=== PATIENT | male | born 1975 | race Caucasian/White ===

== ENCOUNTER → 2023-10-14 13:26 | Outpatient (REF) | payer MEDICARE, OTHER, SELFPAY | LOC: HWRAD 13:26 | PROVIDERS: ATTENDING PHYSICIAN Family Medicine; REFERRING PHYSICIAN Internal Medicine Hospice and Palliative Medicine | DX: M25.561 Pain in right knee (principal); G89.29 Other chronic pain; Z96.641 Presence of right artificial hip joint | CPT/HCPCS: 73523; 73564 ==

== ENCOUNTER → 2023-11-20 13:18 | Outpatient (REF) | payer MEDICARE, OTHER, SELFPAY | LOC: HWRAD 13:18 | PROVIDERS: ATTENDING PHYSICIAN Internal Medicine; FAMILY PHYSICIAN Family Medicine | DX: M81.0 Age-related osteoporosis without current pathological fracture (principal) | CPT/HCPCS: 77080; 77081 ==

== ENCOUNTER → 2024-01-12 10:44 | Outpatient (REF) | payer MEDICARE, OTHER, SELFPAY | LOC: RAD 10:44 | PROVIDERS: ATTENDING PHYSICIAN Dentist; FAMILY PHYSICIAN Family Medicine | DX: K01.1 Impacted teeth (principal) | CPT/HCPCS: 70486 ==

== ENCOUNTER → 2024-08-30 10:53 | Outpatient (REF) | payer MEDICARE, OTHER, SELFPAY | LOC: HWRAD 10:53 | PROVIDERS: ATTENDING PHYSICIAN Family Medicine | DX: R05.1 Acute cough (principal) | CPT/HCPCS: 71046 ==

== ENCOUNTER 2024-10-05 13:02 | Inpatient (IN) | payer MEDICARE, OTHER, SELFPAY ==
[2024-10-05] VITALS (40 sets, daily range): BP systolic 65–178; BP diastolic 41–128; BMI 22.8; BMI 22.7
--- NOTE | 2024-10-05 09:14 | ED.GENMED ---
History of Present Illness
General
Chief Complaint: Fever
Source: patient and family (Mother at bedside)
Exam Limitations: clinical condition
Time Seen by Provider: 10/05/24 09:14
Nursing documentation reviewed up to this point in time: agreed with
History of Present Illness
History of Present Illness:
48-year-old male with history of Down syndrome, Lewy body dementia/Parkinson's, celiac disease, depression presents with family for fever. Mom states fever started last evening with decrease in appetite and tremors. Has had a cough. Is immunized for
Flu and Covid. Dad at home with Bronchitis. Pt had bronchitis last month, finished 10 d of Keflex starting 09/11. Called PCP Dr. Burris and had a telehealth visit last p.m. and put on Azythromycin liquid, had had first 500 mg dose.
Patient is on palliative care followed by Dr. Santos
Past History
Past History
ED Past Medical History: Other (Parkinson's, Lewy body dementia, Down syndrome) and Other (Chronic constipation, mom has to give enema every 3 days. Just started on daily MOM last week)
ED Past Surgical History: Orthopedic (C-spine surgery)
Social History
Tobacco: Non-smoker
Alcohol: None
Drug: None
Personal: Single
Living: with family
Review of Systems
Review of Systems
Allergies reviewed?: Yes
All Other Systems: ROS reviewed and negative except as documented in HPI and ROS
Constitutional: Reports fever and chills
Respiratory: Reports cough and other (mom at bedside states pt pulse ox goes into 80's at night typically and then to 90's during the day)
ABD/GI: Reports anorexia; Denies vomiting or diarrhea
: Reports incontinence (had a heavy wet diaper this a.m.); Denies difficulty voiding
Musculoskeletal: Denies edema
Skin: Reports no symptoms
Phy Exam
Physical Exam
Physical Exam:
GENERAL: No acute distress. A&Ox3.
CONSTITUTIONAL: 102.0 R
EYES: clear, conjunctivae normal
ENMT: dry mucus membranes
RESPIRATORY: Regular respirations, nonlabored, lungs clear.
CARDIOVASCULAR: Regular rate and rhythm, no murmurs, no rubs.
GI: Soft, nontender, normal BS
MUSCULOSKELETAL: Muscle wasting. Well perfused. No edema
SKIN: Warm, dry, pale
PSYCH: Non verbal at this time. Well kept
NEUROLOGIC: Awake, closes eyes at times, rigors, non verbal.
Course
Orders/Labs/Results
Orders:
Orders
10/05/24 09:23
COVID-19 Antigen Urgent
Source: Nasal Swab
INF RAPID [Influenza A+B Rapid Molecular] Urgent
KATHRYN Source: Nasal Swab
Specimen Description:
10/05/24 09:58
0.9% Sodium Chloride 1000 ml [Nss] 1,000 ml IV BOLUS
Acetaminophen [Tylenol/Feverall] 650 mg RECTAL NOW STA
10/05/24 Lunch
NPO
Allow oral meds: Yes
Allow clear liquids: Sips of Clears
NPO with Ice Chips: Yes
10/05/24 10:24
Complete Blood Count/With Diff Urgent
Comprehensive Metabolic Panel Urgent
Magnesium Urgent
Comment: ADD ON
Phosphorus Urgent
Comment: ADD ON
10/05/24 10:31
CR Chest Portable - 1 View Urgent
Comment:
Reason For Exam: fever, flu, Down's syndrome, seizures
Reason Study Needs to be Portable: Patient Unstable
10/05/24 10:39
Oseltamivir [Tamiflu] 75 mg PO NOW STA
10/05/24 11:35
Piperacillin/Tazo 4.5 Gram [Zosyn] 4.5 gram in 100 ml IV NOW
10/05/24 11:43
0.9% Sodium Chloride 1000 ml [Nss] 1,000 ml IV BOLUS
10/05/24 11:58
Blood Culture Q30M
KATHRYN Source: Blood/Venous
Specimen Description:
Blood Culture Q30M
KATHRYN Source: Blood/Venous
Specimen Description:
10/05/24 12:00
0.9% Sodium Chloride 1000 ml [Nss] 1,000 ml IV 100 mls/hr
10/05/24 12:18
Admit/Transfer Patient As Directed
Co-Sign Provider:
Level of Care: Inpatient admission
Assign to:: Medical/Surgical
Physician / Group: Hospitalist
Diagnosis: Influenza
Reason for Hospitalization: Influenza
Expected length of stay greater than two midnights?: Yes
ELOS- Estimated Length of Stay in days: 5
I certify the patient meets the requirements for IP care: Yes
PRN Pain Medication Management As Directed
May give lesser potent ordered pain med per pt: Yes
preference::
Protocol:: Medication orders for pain may be administered in a
manner that supports deferring to patient preference
when the pt is:
- Requesting an ordered lesser potent pain medication.
Least to most potent pain medications are defined
as: acetaminophen < NSAID < tramadol < opioids
(morphine, oxycodone, hydromorphone).
- Requesting a lesser dose of the same medication IF
ORDERED.
- Requesting a less intrusive route of administration
if both routes are prescribed by the provider (PO <
IV).
10/05/24 12:20
Code Status As Directed
Resuscitation Status: Do not resuscitate
Reached after discussion with pt or family/Healthcare POA: Yes
10/05/24 12:21
DNR Bracelet Application ONCE
10/05/24 12:56
ABG [Arterial Blood Gas] Stat
%Oxygen/Room Air: 100%
10/05/24 13:16
Albuterol Nebs [Ventolin Nebules] 2.5 mg INH R Q4HPRN PRN
Bisacodyl [Dulcolax] 10 mg RECTAL [id number] PRN
Docusate W/Senna [Senokot-S] 1 tablet PO BIDPRN PRN
Ondansetron Injectable [Zofran] 4 mg IV Q8HPRN PRN
Polyethylene Glycol Powder [Miralax] 17 grams PO DAILYPRN PRN
10/05/24 13:16
Respiratory Culture/Gram Stain Urgent
KATHRYN Source: Sputum
Specimen Description:
Date Specimen was Collected: 10/06/24
Time Specimen was Collected: 10:01
Activity As Directed
Activity Level: Out of Bed-Early Mobility
Precautions As Directed
Type of Precautions: Droplet
Precautions As Directed
Type of Precautions: Seizure
Suction Patient As Directed
Route of Suctioning: Oropharyngeal
Vital Signs As Directed
Frequency: Per unit guidelines
O2 Therapy [RESP] Routine
Titrate/Wean O2 to maintain O2 sat greater than (%): 90
Speech Therapy Eval & Treat Routine
DX Deep Vein Thrombosis Video Routine
10/05/24 13:49
Blood Culture Q30M
KATHRYN Source: Blood/Venous
Specimen Description:
Blood Culture Q30M
KATHRYN Source: Blood/Venous
Specimen Description:
10/05/24 14:00
CefTRIAXone [Rocephin] 1,000 mg IV Q24H
Doxycycline Hyclate [Vibramycin] 100 mg 0.9% Sodium Chloride 250 ml [Nss] 250 ml IV Q12H
10/05/24 16:00
Acetaminophen 1000MG/100Ml [Ofirmev] 1,000 mg in 100 ml IV Q8H
Acetaminophen IV Indication:: No IN & No Enteral Access
Alprazolam [Xanax] 0.125 mg PO TID
Heparin 5,000 units SC Q8
Ipratropium/Albuterol Sulfate [Duoneb] 3 ml INH R QID
10/05/24 20:00
Brimonidine [Alphagan 0.2% Eye Drops] See Dose Instructions RIGHT EYE BID
Lamotrigine [Lamictal] 50 mg PO BID
Oseltamivir [Tamiflu] 30 mg PO BID
10/05/24 22:00
Latanoprost [Xalatan Ophthalmic Solution] See Dose Instructions BOTH EYES HS
netarsudil [Rhopressa] 1 drop RIGHT EYE HS
travoprost [Travatan Z] 1 drop BOTH EYES HS
10/06/24 03:34
Complete Blood Count/With Diff IN AM
Comprehensive Metabolic Panel IN AM
Abnormal Lab Results
10/05/24 10/05/24
10:24 12:56
MCV 98.1 H fL
(80.0-94.0)
MCH 33.3 H pg
(27.0-31.0)
Abs Immat Gran (auto) 0.1 H 10^3/uL
(0-0.05)
Absolute Lymphs (auto) 0.4 L 10^3/uL
(1.2-3.4)
Immature Gran % 0.9 H %
(0-0.5)
Neutrophils % 81.7 H %
(42.2-75.2)
Lymphocytes % 5.5 L %
(20.5-51.1)
pO2 110 H mmHg
(83-108)
ABG O2 Sat (Measured) 99.9 H %
(94-98)
Sodium 146 H mmol/L
(135-145)
BUN 46 H mg/dl
(9-20)
Creatinine 2.0 H mg/dL
(0.7-1.3)
Glucose 112 H mg/dl
(70-99)
Phosphorus 5.0 H mg/dl
(2.5-4.5)
Magnesium 3.2 H mg/dl
(1.6-2.3)
AST 69 H U/L
(17-59)
ALT 85 H U/L
(0-50)
10/05/24 10:24
10/05/24 10:24
Vital Signs
Initial and Last Documented VS:
Initial Vital Signs
Temp Resp
99.4 F 20
10/05/24 09:03 10/05/24 09:03
Last Documented Vital Signs
Temp Pulse Resp BP Pulse Ox
100.6 F H 96 12 101/65 59
10/07/24 07:50 10/07/24 06:00 10/07/24 06:00 10/07/24 06:00 10/07/24 08:00
MDM/Problems Addressed
Differential Diagnosis Includes:
COVID, influenza, bronchitis, pneumonia
MDM/Problems Addressed:
48-year-old male with history of Down syndrome, Lewy body dementia/Parkinson's, celiac disease, depression presents with family for fever. Mom states fever started last evening with decrease in appetite and tremors. Has had a cough. Is immunized for
Flu and Covid. Dad at home with Bronchitis. Pt had bronchitis last month, finished 10 d of Keflex starting 09/11. Called PCP Dr. Burris and had a telehealth visit last p.m. and put on Azythromycin liquid, had had first 500 mg dose.
Patient is on palliative care followed by Dr. Santos
Temp 102.0 Rectal by this examiner
11:15 a.m.
CBC noted, unremarkable
CMP: BUN/creat 46/2.0, IV fluids infusing for dehydration
COVID-negative
Flu A+
11:30 a.m.
This 48-year-old male appears moderately ill with influenza A, fever
CXR: L basilar pneumonia
Pulse ox 80% on 5L NC. Respiratory called for humidified O2 by mask, pt breathes through open mouth
Plan: Admit: Pneumonia, Flu, dehydration, IV antibiotic ordered
Hospitalist notified of admission
Chronic conditions affecting care: Neurological disorder (Parkinson's) and Other (Down's Syndrome)
*Critical Care Note
Total Time (30-74mins, 75-104mins- exclusive of procedures): Not Applicable
ED Attending Note
-
Portions of this chart may have been created with voice recognition software.� Occasional wrong word or��sound alike� substitutions may have occurred due to the inherent limitations of voice recognition software.
Discharge Plan
Departure
Patient Disposition: Admit
Date of Disposition: 10/05/24
Time of Disposition: 11:13
Presentation/result/management discussed w/ accepting MD/DO: Hospitalist
Condition: Serious
Covid-19: Negative COVID-19
Discharge Problem:
Influenza A, Pneumonia, Acute hypoxic respiratory failure
Interventions
Interventions:
*Risk Screen - Suicide Last Done: 10/05/24 10:39
*General Assessment Last Done: 10/05/24 09:27
*Neglect/Abuse Screening Last Done: 10/05/24 09:27
ED- Fall Risk Assessment Last Done: 10/05/24 09:27
*ED COVID-19 Vaccine History Last Done: 10/05/24 09:27
ED- Neurological Assessment Last Done: 10/05/24 09:32
ED-Skin Assessment Last Done: 10/05/24 09:27
[2024-10-05 09:43] LABS: COVID-19 Antigen Negative (Negative)
[2024-10-05] MEDS: NSS 1000 IV ×4 (10:18→21:46)
[2024-10-05] MEDS: TYLENOL/FEVERALL 650 MG RECTAL (10:18)
[2024-10-05 10:33] LABS: % Basophils 1.1 % (0-2); % Eosinophils 4.5 % (0-6); % Immature Granulocytes 0.9 % (0-0.5); % Lymphocytes 5.5 % (20.5-51.1); % Monocytes 6.3 % (1.7-9.3); % Neutrophils 81.7 % (42.2-75.2); Absolute Basophils 0.1 10^3/uL (0-0.2); Absolute Eosinophils 0.3 10^3/uL (0-0.7); Absolute Immature Granulocytes 0.1 10^3/uL (0-0.05); Absolute Lymphocytes 0.4 10^3/uL (1.2-3.4); Absolute Monocytes 0.4 10^3/uL (0.1-0.6); Absolute Neutrophils 5.3 10^3/uL (1.4-6.5); Hematocrit 47.1 % (39.0-52.0); Mean Corpuscular Hgb 33.3 pg (27.0-31.0); Mean Corpuscular Volume 98.1 fL (80.0-94.0); Mean Platelet Volume 9.8 fL (7.4-10.4); Nucleated Red Blood Cells % 0 % (-); Platelet Count 149 10^3/uL (130-400); Red Cell Dist. Width 13.6 % (11.5-14.5); White Blood Cell Count 6.5 10^3/uL (4.8-10.8)
[2024-10-05 10:46] LABS: ALT (SGPT) 85 U/L (0-50); AST (SGOT) 69 U/L (17-59); Albumin 4.1 g/dl (3.5-5.0); Alkaline Phosphatase 87 U/L (38-126); Blood Urea Nitrogen 46 mg/dl (9-20); Calcium 8.7 mg/dl (8.4-10.2); Carbon Dioxide 27 mmol/L (22-30); Chloride 103 mmol/L (98-107); Glucose 112 mg/dl (70-99); Potassium 4.5 mmol/L (3.5-5.1); Sodium 146 mmol/L (135-145); Total Bilirubin 0.6 mg/dl (0.2-1.3); Total Protein 7.8 g/dl (6.3-8.2); eGFR 40.66
[2024-10-05] MEDS: TAMIFLU 75 MG PO (11:32)
[2024-10-05] MEDS: ZOSYN 100 IV (11:59)
--- NOTE | 2024-10-05 12:26 | HPS.HSE ---
Family Physician
-
Family Physician: Oscar Burris
Chief Complaint
-
fever
History of Present Illness
48yo M with Down syndrome, progressive dysphasia on palliative care developed fevers and poor oral intake day prior to admission. FOund Influenza A and LLL pneumonia on XR. ALso WOODROW most likely 2/2 dehydration. Patient usually fed by his mother with
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 Due to PATRICIA - udually desat during sleep, but intollerant of NC or CPAP at home. Lethargic and hypoxic in ED. After detailed conversation with mother bedside - patient DNR/DNI
Medical History
Past Medical History
Past Medical History: Reports Other
Additional Past Medical History:
see hpi
Past Surgical History: Reports None
Social History
Unable to obtain full social history at this time due to: Acuity
Tobacco: Non-smoker
Alcohol: None
Drug: None
Family History
Family History: Not pertinent
Allergies / Home Medications
Allergies reflects when Allergies were last updated in [facility].
Home Medications with original date entered in [facility]
Allergy/Medication List:
Allergies
Allergy/AdvReac Type Severity Reaction Status Date / Time
No Known Allergies Allergy Verified 10/05/24 08:57
Home Medications
alprazolam 0.25 mg tablet (Xanax) 0.125 mg PO TID Mental Health/Anxiety 04/12/22
brimonidine 0.2 %-timolol 0.5 % eye drops (Combigan) 1 drp RIGHT EYE BID Eye condition 04/12/22
melatonin 3 mg tablet 6 mg PO HS Sleep 04/12/22
netarsudil 0.02 % eye drops (Rhopressa) 1 drp RIGHT EYE HS Eye condition 04/12/22
travoprost 0.004 % eye drops (Travatan Z) 1 drp BOTH EYES HS Eye condition 04/12/22
calcium citrate 500 mg PO DAILY Supplement 04/13/22
cholecalciferol (vitamin D3) 25 mcg (1,000 unit) tablet (Vitamin D3) 25 mcg PO DAILY Supplement 04/13/22
cyanocobalamin (vitamin B-12) 1,000 mcg tablet (Vitamin B-12) 1,000 mcg PO DAILY Supplement 04/13/22
sennosides 8.6 mg-docusate sodium 50 mg tablet (Senokot-S) 2 tab-cap PO HS Gastrointestinal issue 04/13/22
acetaminophen 650 mg/20.3 mL oral solution 0 mg PO Q4HPRN PRN fever 10/05/24
azithromycin 200 mg/5 mL oral suspension 0 mg PO .COMPLEX 10/05/24
denosumab 60 mg/mL subcutaneous syringe (Prolia) 60 mg SC [id number] 10/05/24
lamotrigine 25 mg tablet (Lamictal) 50 mg PO BID 10/05/24
latanoprost 0.005 % eye drops 1 drp BOTH EYES HS 10/05/24
sodium chloride 0.9 % for nebulization 0 ml inhalation QIDPRN PRN sob 10/05/24
Review of Systems
-
Unable to obtain full review of systems at this time due to: Acuity
Physical Exam
Vital Signs
Vital Signs
Temp Resp BP Pulse Ox
100.3 F 24 79/50 94
10/05/24 09:14 10/05/24 09:26 10/05/24 11:00 10/05/24 11:30
Physical Exam
General: Fever
Respiratory: Rhonchi; No Wheezes or Rales
Cardiac: S1/S2 and Regular Rhythm; No Murmur
GI: Soft, Non Tender and Non Distended
Genito-urinary: Clear Urine
Musculoskeletal: No Clubbing, No Cyanosis and No Edema
Neuro: Sedated
Psych: Calm
Laboratory Results
-
10/05/24 10:24
10/05/24 10:24
Laboratory Results
Total Bilirubin 0.6 mg/dl (0.2-1.3) 10/05/24 10:24
AST 69 U/L (17-59) H 10/05/24 10:24
ALT 85 U/L (0-50) H 10/05/24 10:24
Alkaline Phosphatase 87 U/L (38-126) 10/05/24 10:24
Data Reviewed
-
Diagnostic Radiology: Report Reviewed by me
Lab Data: Labs Reviewed by me
Impression/Plan
-
A/P
#Acute hypoxic respiratory failure 2/2 pneumonia, unspecified organism
#Influenza A
#PATRICIA not on CPAP or nocturnal O2
#Acute septic encephalopathy 2/2 above
start non-invasive O2, titrate to >90%
Tamiflue
respiratory hygiene - frequent suctioning
Rocephin/DOxy
sputum Cx
tylenol
droplet precautions
Bcx
ABG
#WOODROW
#Dysphagia
GAUGER DELIVERY
IVF
follow Cr
#Down syndrome
progressive
family will continue with palliative approach
#Seizure d/o
Seizure precautions
lamictal level and cont AED
#Glaucoma
cont home meds
#Osteoporosis
cont Prolia upon d/c
DVT ppx hep
DNR/DNI
I have spent at least 78min reviewing chart, test results, communication with consultants and direct patient care
[2024-10-05 13:08] LABS: B.E. 1.3 mmol/L; HCO3 27.2 mmol/L (21-28); O2 Saturation % 99.9 % (94-98); PCO2 47 mmHg (35-48); PO2 110 mmHg (83-108); pH 7.37 (7.35-7.45)
--- NOTE | 2024-10-05 13:37 | W.PN.UPDATE ---
Update Note
Progress Note Update
Hypotension in spite of 2L bolus on admission, possible septic shock - Levophed, ICU, expand Abx to Vanco/Cefepime
--- NOTE | 2024-10-05 13:51 | PHA.VAN.IN ---
Assessment
- Assessment
Renal Function: Appears elevated from baseline (SCR 2 vs ~0.7)
Concomitant Antimicrobials: cefepime, oseltamivir
Plan
- Plan
Initial / Loading Dose: 1500mg - administration pending
Maintenance Regimen: dosing by level
Monitoring: random - 10/06 0600
MRSA Screen: Ordered per protocol
Pharmacokinetics Vancomycin I
- -
Patient Age: 48
Patient Sex: Male
Vancomycin Day #: 1
Indication: Other
Requesting Provider: Dr. Vieira
Pertinent Antimicrobial Allergies:
NKDA
Height / Weight:
Height 5 ft 3 in
Actual Weight 58.3 kg
Pertinent Past Medical History: Down syndrome
- Vital Signs / Lab Results
Temp Resp BP Pulse Ox
100.3 F 24 70/51 96
10/05/24 09:14 10/05/24 09:26 10/05/24 12:00 10/05/24 12:30
Lab Results - Hematology
10/05/24
10:24
WBC 6.5
Lab Results - Chemistry
10/05/24
10:24
BUN 46 H
Creatinine 2.0 H
Albumin 4.1
Microbiology Results
10/05/24 09:23 Influenza Types A & B (ALEXEY) - Final
Nasal Swab Influenza A Positive, NAAT
[2024-10-05] MEDS: LEVOPHED 250 IV ×2 (13:59→19:50)
[2024-10-05] MEDS: VANCOCIN 530 MG IV (14:14)
--- NOTE | 2024-10-05 14:25 | CON.INTV ---
Consultation
Consultation Request
Date/Time Consultation Requested: 10/05/2024/13:36
Date/Time Consultation Performed: 10/05/2024/14:05
Requesting Provider: Juan Carlos Vieira
Performing Provider: Ki Amaral
Reason for Consultation: Septic Shock
Medical History
-
Chief Complaint: Fever, cough, and lethargy
History of Present Illness:
Patient is a 48-year-old male, has Down syndrome with complications(dysphagia, myopathy, PATRICIA),Lewy body dementia/Parkinsons?, Depression, brought in the emergency by his mother with complaint of fever that was high-grade, with no day or night
pattern, not relieved by acetaminophen at home and was associated with cough. As per mother, he was not feeling well for last 2 days, he was being more lethargic, was having cough, was febrile so they reached out to primary care physician
Fatuma and had a tele health visit yesterday, he was put on liquid azithromycin which she gave to him through syringe but the patient became more lethargic and started coughing so they decided to come to the ER.
On arrival to the ER patient was lethargic and hypoxic. He was resuscitated with 2 L of fluid, but hypotension persisted and so he was started on Levophed. He was also given a dose of Zosyn, ceftriaxone and doxycycline in the ER. Evaluation in ER
showed, a new opacity in left lower lobe of lung, and patient was found to be influenza A positive. He was severely hypoxic and is currently on 15 L of oxygen with nonrebreather mask.
Patient has history of dysphagia that is progressive, and patient only tolerates pur�ed diet or liquids. He also has history of PATRICIA but is intolerant of CPAP/nasal cannula but often desaturates at night.
Of note, patient is on palliative care and is DNR and DNI as confirmed with the family
Past Medical History
Past Medical History: Seizures (Last seizure 3 years ago, occasionally has twitches of muscles) and Other (Down syndrome with complications of (dysphagia, myopathy), PATRICIA, depression, Lewy body dementia, Parkinson's, osteoporosis)
Past Surgical History: Other (Spine surgery)
Social History
Tobacco: Non-smoker
Alcohol: None
Drug: None
Personal: Single
Living: With Family
Family History
Family History: Reviewed & Not Pertinent
Allergies / Home Medications
Allergies
Allergy/AdvReac Type Severity Reaction Status Date / Time
No Known Allergies Allergy Verified 10/05/24 08:57
Home Medications
�Medication �Instructions �Recorded �Confirmed �Last Taken �Type
alprazolam 0.25 mg tablet (Xanax) 0.125 mg PO TID Mental 04/12/22 10/05/24 10/05/24 History
Health/Anxiety
brimonidine 0.2 %-timolol 0.5 % 1 drp RIGHT EYE BID Eye condition 04/12/22 10/05/24 Unknown History
eye drops (Combigan)
melatonin 3 mg tablet 6 mg PO HS Sleep 04/12/22 10/05/24 Unknown History
netarsudil 0.02 % eye drops 1 drp RIGHT EYE HS Eye condition 04/12/22 10/05/24 Unknown History
(Rhopressa)
travoprost 0.004 % eye drops 1 drp BOTH EYES HS Eye condition 04/12/22 10/05/24 Unknown History
(Travatan Z)
calcium citrate 500 mg PO DAILY Supplement 04/13/22 10/05/24 Unknown History
cholecalciferol (vitamin D3) 25 25 mcg PO DAILY Supplement 04/13/22 10/05/24 Unknown History
mcg (1,000 unit) tablet (Vitamin
D3)
cyanocobalamin (vitamin B-12) 1,000 mcg PO DAILY Supplement 04/13/22 10/05/24 Unknown History
1,000 mcg tablet (Vitamin B-12)
sennosides 8.6 mg-docusate sodium 2 tab-cap PO HS Gastrointestinal 04/13/22 10/05/24 Unknown History
50 mg tablet (Senokot-S) issue
acetaminophen 650 mg/20.3 mL oral 0 mg PO Q4HPRN PRN fever 10/05/24 10/05/24 10/05/24 History
solution
azithromycin 200 mg/5 mL oral 0 mg PO .COMPLEX 10/05/24 10/05/24 10/04/24 History
suspension 12.5ml
denosumab 60 mg/mL subcutaneous 60 mg SC [id number] 10/05/24 10/05/24 4 Months Ago History
syringe (Prolia) ~06/05/24
lamotrigine 25 mg tablet (Lamictal) 50 mg PO BID 10/05/24 10/05/24 10/05/24 History
latanoprost 0.005 % eye drops 1 drp BOTH EYES HS 10/05/24 10/05/24 Unknown History
sodium chloride 0.9 % for 0 ml inhalation QIDPRN PRN sob 10/05/24 10/05/24 Unknown History
nebulization
Review of Systems
-
Unable to Obtain full review of systems at this time due to: Other (Patient sedated)
Endocrine: Temperature Intolerance
Vitals / Labs / Diagnostic Testing
Vital Signs
Temp Pulse Resp BP Pulse Ox
100.3 F 83 24 73/41 88
10/05/24 09:14 10/05/24 14:00 10/05/24 09:26 10/05/24 14:00 10/05/24 14:00
Lab Data
10/05/24 10:24
10/05/24 10:24
Laboratory Results
10/05/24
12:56
pH 7.37
pCO2 47
pO2 110 H
HCO3 27.2
O2 Delivery Level
Microbiology
10/05/24 09:23 Nasal Swab Influenza Types A & B (ALEXEY) - Final
Influenza A Positive, NAAT
Diagnostic Testing:
Physical Exam
-
HEENT: Anicteric and Other (Febrile, on 15 L of oxygen via nonrebreather by mask, on vasopressor)
Cardiovascular: S1/S2, Regular Rhythm and Other (Tachycardic, no murmur or)
Respiratory: Clear
GI: Soft, Non Distended and Normal Bowel Sounds
Neurology: Other (Sedated)
Skin: Warm and Good Color
General: Respiratory Distress and Other (On 15 L of oxygen via nonrebreather mask)
Assessment
-
Impression
Patient is a 48-year-old male, has Down syndrome with complications of dysphagia and myopathy as well as due body dementia and parkinsonism. History of being admitted in hospital for seizures in 2021. Presented with complaints of fever, cough and
lethargy and critical care required for septic shock secondary to influenza and superimposed pneumonia with acute respiratory failure.
Assessment
# Septic shock secondary to influenza with superimposed pneumonia
# Acute respiratory failure
# WOODROW
# Transaminitis
Plan
# Septic shock secondary to influenza with superimposed pneumonia
Hypotension, tachycardia, clear source of infection in the lungs, persistent hypotension despite 2 L fluid bolus, required Levophed to maintain blood pressure
Received a dose of Zosyn, ceftriaxone and azithromycin in ER-discontinued on admission
Currently on cefepime and vancomycin
Blood cultures sent
Send sputum culture-if patient producing enough secretions
Check procalcitonin-to assess response to treatment
Temperature and WBC charting
Keep Levophed, goal is to keep MAP greater than 65
# Acute respiratory failure
Currently hypoxic, secondary to influenza with superimposed pneumonia
Keep SpO2 greater than 90
Patient DNI as per the family
# WOODROW
Baseline creatinine 0.6-0.8
Patient serum creatinine is 2-continue maintenance fluids
Monitor RFT's
# Transaminitis
Most likely secondary to sepsis and decreased perfusion
Continue to monitor
# Other medical conditions
# PATRICIA-do not tolerate CPAP/oxygen through nasal cannula-desaturates at night
# Parkinson's disease/Lewy body dementia-was started on medications in the past but did not tolerate
-follows up with Dr. Pierre from [facility] as outpatient
# Glaucoma-uses brimonidine eyedrops
# Seizure-admitted in 2021 and [facility]-takes alprazolam and lamotrigine, did not had a seizure since then, occasional muscle twitches
# Celiac disease
# History of cervical spinal surgery
# Chronic constipation-uses enema every 3 days
DVT prophylaxis-heparin 8 hourly
CODE STATUS-DNR and DNI
[2024-10-05 14:31] LABS: Lactic Acid 1.8 mmol/L (0.7-2.0)
[2024-10-05 15:27] LABS: Procalcitonin 1.05 ng/ml (0.0-0.25)
--- NOTE | 2024-10-05 15:43 | PTCARENOTE ---
pt responds only to tactile stimuli (sternal rub). vss. nsr on monitor. MD aware. no new orders. family at bedside. will monitor.
[2024-10-05] MEDS: DUONEB 3 ML INH ×2 (15:46→21:12)
[2024-10-05] MEDS: HEPARIN 5000 UNITS SC (16:19)
[2024-10-05 17:05] LABS: Urine Albumin 1+ (Neg - Trace); Urine Bilirubin Negative (Negative); Urine Character Clear (Clear); Urine Color Yellow; Urine Glucose Negative (Negative); Urine Ketone Negative (Negative); Urine Leukocyte Negative (Negative); Urine Nitrite Negative (Negative); Urine Occult Blood 3+ (Negative); Urine Urobilinogen Negative (Neg - 1+)
[2024-10-05] MEDS: STERILE WATER FOR INJECTION 10 ML IV (17:10)
[2024-10-05] MEDS: MAXIPIME 1000 MG IV (17:11)
[2024-10-05 17:13] LABS: Urine Squamous Cell 0-2 /LPF (Few)
[2024-10-05 17:14] LABS: Urine Bacteria Many (Negative); Urine White Cell 0-2 /HPF (0-5)
[2024-10-05 17:17] LABS: APTT 35.8 Sec (23.4-35.0); INR 1.26; PT 16.1 Sec (11.4-14.6)
[2024-10-05 17:26] LABS: Osmolality Urine 567 mOsm/kg (300-900)
[2024-10-05 17:34] LABS: Magnesium 3.2 mg/dl (1.6-2.3)
--- NOTE | 2024-10-05 18:36 | PTCARENOTE ---
Received pt from ED. Pt non-verbal, twitching and tremulous. Not following commands, opens eyes to voice. On NRB, changed to aerosol mask 10L 40% with SpO2 90%. Sinus rhythm on 12mcg/min Levophed with map >65. Skin intact, Lewis draining clear
yellow urine, sample to lab. NS 100/hr. Mother at bedside. Plan of care discussed.
[2024-10-05] MEDS: ATIVAN 0.5 MG IV (19:38)
[2024-10-05] MEDS: NSS (PRESERVATIVE FREE) 0.25 ML IV (19:39)
[2024-10-05 20:43] LABS: Urine Sodium 36 mmol/L (30-90)
[2024-10-05] MEDS: ALPHAGAN 0.2% EYE DROPS RIGHT EYE (20:47)
[2024-10-05] MEDS: TIMOPTIC 0.5% OPHTHALMIC SOLUTION OPHTH (20:47)
[2024-10-05] MEDS: XALATAN OPHTHALMIC SOLUTION BOTH EYES (20:47)
--- NOTE | 2024-10-05 20:48 | PTCARENOTE ---
ax1- 12mcg levo to maintain map- Lewis with clear yellow output afebrile- sinus 70's. rhonchi venti mask 40% 10 liters. pt was very agitated as evidenced jerking/twitchy whole body motions mother requested ativan as pt normally takes Xanax but
unable to tolerate po. Ativan given pt much more calm and oxygen requirements/resp status improved. mother wants to stay away from anything stimulating pt and does not want him on a turn schedule tonight-also refuses eyedrops for the night as she is
happy with him being calmed after Ativan
[2024-10-05] MEDS: OFIRMEV 100 IV (22:01)
--- NOTE | 2024-10-05 22:04 | PTCARENOTE ---
fever spiked rapidly- bacteriology teacher ordered Ofirmev - unable to administer pr due to pt agitation-
[2024-10-06] VITALS (46 sets, daily range): BP systolic 81–135; BP diastolic 45–121; BMI 22.7
[2024-10-06] MEDS: MAXIPIME 1000 MG IV ×4 (01:25→23:09)
[2024-10-06] MEDS: HEPARIN 5000 UNITS SC ×2 (01:25→08:20)
[2024-10-06] MEDS: STERILE WATER FOR INJECTION 10 ML IV ×4 (01:26→23:09)
[2024-10-06] MEDS: LEVOPHED 250 IV ×3 (02:10→20:08)
[2024-10-06] MEDS: VENTOLIN NEBULES 2.5 MG INH (03:15)
[2024-10-06 04:30] LABS: % Basophils 0.5 % (0-2); % Immature Granulocytes 0.7 % (0-0.5); % Lymphocytes 10.8 % (20.5-51.1); % Monocytes 4.7 % (1.7-9.3); % Neutrophils 83.3 % (42.2-75.2); Absolute Lymphocytes 0.5 10^3/uL (1.2-3.4); Absolute Monocytes 0.2 10^3/uL (0.1-0.6); Absolute Neutrophils 3.5 10^3/uL (1.4-6.5); Hematocrit 39.8 % (39.0-52.0); Hemoglobin 13.2 g/dL (13.0-18.0); Mean Corp Hgb Conc. 33.2 g/dL (33.0-37.0); Mean Corpuscular Hgb 33.7 pg (27.0-31.0); Mean Corpuscular Volume 101.5 fL (80.0-94.0); Nucleated Red Blood Cells % 0 % (-); Red Blood Cell Count 3.92 10^6/uL (4.70-6.10); Red Cell Dist. Width 13.5 % (11.5-14.5); White Blood Cell Count 4.2 10^3/uL (4.8-10.8)
--- NOTE | 2024-10-06 05:03 | PTCARENOTE ---
levo increased to 12. episode of increased work of breathing R.T gave respiratory tx with good effect. mother still at bedside very helpful
[2024-10-06 05:15] LABS: Vancomycin Random 12.3 ug/ml
[2024-10-06 05:26] LABS: ALT (SGPT) 76 U/L (0-50); AST (SGOT) 70 U/L (17-59); Albumin 2.7 g/dl (3.5-5.0); Alkaline Phosphatase 71 U/L (38-126); Blood Urea Nitrogen 35 mg/dl (9-20); Calcium 6.5 mg/dl (8.4-10.2); Carbon Dioxide 25 mmol/L (22-30); Chloride 112 mmol/L (98-107); Estimated Creatinine Clearance 61 ml/min; Glucose 97 mg/dl (70-99); Magnesium 2.6 mg/dl (1.6-2.3); Phosphorus 2.7 mg/dl (2.5-4.5); Potassium 3.8 mmol/L (3.5-5.1); Sodium 144 mmol/L (135-145); Total Bilirubin 0.4 mg/dl (0.2-1.3); Total Protein 5.9 g/dl (6.3-8.2); eGFR > 60.00
[2024-10-06] MEDS: CALCIUM GLUCONATE 100 IV ×2 (06:03→07:03)
[2024-10-06] MEDS: NSS 1000 IV ×2 (06:41→17:37)
[2024-10-06] MEDS: OFIRMEV 100 IV ×2 (06:43→20:06)
[2024-10-06] MEDS: DUONEB 3 ML INH ×4 (07:37→19:57)
--- NOTE | 2024-10-06 08:11 | W.PN.INTV ---
Today's Communication / Plan
Recommendations
Follow blood cultures and urine culture
iNCREASE TAMIFLU TO 75MG BID
INCREASE CEFEPIME TO 6 HOURLY
TRANSITION TO ENOXAPARIN S/C
Add protonix for gi ppx
IV AEDS
Assessment
-
Impression
Patient is a 48-year-old male, has Down syndrome with complications of dysphagia and myopathy as well as due body dementia and parkinsonism. History of being admitted in hospital for seizures in 2021. Presented with complaints of fever, cough and
lethargy and critical care required for septic shock secondary to influenza and superimposed pneumonia with acute respiratory failure.
Assessment
# Septic shock secondary to influenza with superimposed pneumonia
# Acute respiratory failure secondary to hypoxia
#Influenza A +
#Possible aspiration pneumonia
# WOODROW
# Transaminitis
Plan
# Septic shock secondary to influenza with superimposed pneumonia
Hypotension, tachycardia, clear source of infection in the lungs, persistent hypotension despite 2 L fluid bolus, required Levophed to maintain blood pressure
Received a dose of Zosyn, ceftriaxone and azithromycin in ER-discontinued on admission
Currently on cefepime and vancomycin-as renal function returning to normal-now cefepime 1g 6hourly
Blood cultures-pending
Send sputum culture-if patient producing enough secretions
Procalcitonin-1.04
Temperature and WBC charting
Keep Levophed, goal is to keep MAP greater than 65
# Acute respiratory failure
Currently hypoxic, secondary to influenza with superimposed pneumonia
Keep SpO2 greater than 90-94,NEBS NEEDED
Patient DNI as per the family
#Possible aspiration pneumonia
Aspiration precautions
SOCIAL SERVICES SPECIALIST evaluation,before feeding
Keep HOB elevated
# Influenza A+
Tamiflu for 5 days-DOSE INCREASED TO 75MG BID- RFTS IMPROVING
Droplet precautions
# WOODROW
Baseline creatinine 0.6-0.8
Patient serum creatinine is 2-continue maintenance fluids
TRENDING DOWN,IMPROVED T0 1.2-CONTINUE MONITORING
# Transaminitis
Most likely secondary to sepsis and decreased perfusion
Continue to monitor
# Other medical conditions
Patient unable to take oral meds so start IV lorazepam and IV Phenobarbital 32.5mg IV daily
# PATRICIA-do not tolerate CPAP/oxygen through nasal cannula-desaturates at night
# Parkinson's disease/Lewy body dementia-was started on medications in the past but did not tolerate
-follows up with Dr. Pierre from [facility] as outpatient
# Glaucoma-uses brimonidine eyedrops
# Seizure-admitted in 2021 and [facility]-takes alprazolam and lamotrigine, did not had a seizure since then, occasional muscle twitches
# Celiac disease
# History of cervical spinal surgery
# Chronic constipation-uses enema every 3 days
DVT prophylaxis-enoxaprin
CODE STATUS-DNR and DNI
Subjective Dataa
Subjective Data
Date of Service:
Date of Service: October 06, 2024
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
Subjective:
Increased work of breathing
Febrile overnight with the peak temp of 101
Levophed 12 mcg/min
Sedated
On oxygen via facemask and bag at 10 L
Review of Systems
General: Unobtainable - Sedation
Objective Data
Data Reviewed
Vital Signs / I&O / Oxygen:
Vital Signs
Temp Pulse Resp BP Pulse Ox
99.9 F 90 14 104/57 88
10/06/24 02:12 10/06/24 07:41 10/06/24 07:41 10/06/24 06:30 10/06/24 07:41
Intake and Output
10/05/24 10/06/24 10/07/24
06:59 06:59 06:59
Intake Total 1840.0 / 1840.0
Output Total 830 / 830
Balance 1010.0 / 1010.0
SaO2 88
Nasal Cannula flow liters per 5
minute
Physical Exam
General: Respiratory Distress, Fever and Other (sedated and on vasopressors)
HEENT: Anicteric and Other (On 10 liter oxygen via facemask and bag)
Cardiovascular: S1-S2, Regular Rhythm and Other (tachycardia)
Respiratory: Rhonchi and Other (increased work of breathing)
GI: Soft, Non Distended and Normal Bowel Sounds
Neurology: Unresponsive (sedated)
Skin: Warm and Good Color
Labs/Micro/Reports
Lab Data
10/06/24 03:34
10/06/24 03:34
Laboratory Results
10/05/24 10/05/24
12:56 16:57
PT 16.1 H
INR 1.26
APTT 35.8 H
pH 7.37
pCO2 47
pO2 110 H
HCO3 27.2
O2 Delivery Level
Microbiology
10/05/24 14:05 Nose Nasal Screen MRSA (PCR) - Final
MRSA not detected - performed by PCR methodology.
10/05/24 09:23 Nasal Swab Influenza Types A & B (ALEXEY) - Final
Influenza A Positive, NAAT
--- NOTE | 2024-10-06 08:17 | W.PN.INTV ---
Today's Communication / Plan
Recommendations
Vasopressors with goal MAP >65
Tamiflu
Cefepime
DuoNebs
Aspiration precautions
Supplemental oxygen with facemask while keeping SpO2 >90-94%
Unable to give Lamictal, use IV phenobarbital for now per neurology
Transition back to Lamictal once clinically able to safely do so
Follow-up Lamictal level
Guarded prognosis
Continue ICU level care for this critically ill patient
Assessment
-
48-year-old male with a past medical history of Down syndrome, Parkinson disease with suspected Lewy body dementia, congenital dysplasia right hip, malignant glaucoma of right eye, celiac disease, GERD, history of depression, seizure disorder and
history of COVID-19 who presented with coughing, reduced appetite and fever. Found to be flu a positive and hypotensive requiring vasopressors. Suspected bacterial superinfection. Patient admitted to the ICU for further care and lapidarist
services consulted for additional management/recommendations.
Assessment:
#Septic shock due to pneumonia with influenza A with bacterial superinfection
#Acute respiratory failure with hypoxia
#Influenza A virus
#CAP involving RLL, suspected to be due to aspiration
#WOODROW
#Hypernatremia (mild)
#Transaminitis
Plan:
- Continue broad spectrum ABx � currently on cefepime; s/p IV vanco given x1 on 10/05/2024 (MRSA swab negative)
- Tamiflu x 5 days with support care
- Follow up blood Cx and sputum� Cx (submitted today)
- Follow up procal for trending power (1.05 on 10/05/2024)
- Trend WBC and monitor for fevers
- Continue with supplemental oxygen and titrate to keep SpO2 >90-94%
- Aspiration precautions, keep HOB elevated
- Continue DuoNebs with prn duonebs for any breakthrough symptoms
- Would check DIPLOMA MAKER eval prior to resuming PO diet - he is currently to altered with obtunded mental status, and not safe for DIPLOMA MAKER evaluation at this time
- Continue levophed and maintain MAP>65
- Replete K>4, Mg>2
- Continue the patient's home AEDs and follow-up Lamictal level
- He is on Xanax 0.125 mg TID, however given his acute clinical status we will need to hold this to avoid worsening sedation, otherwise he will need dobhoff tube which the family has refused
- Convert from xanax to IV ativan, holding for sedation (may need to adjust dose even lower to not worsen his obtunded mental state, but need to treat to avoid seizure as well so this is a difficult situation)
- Trend sCr, monitor I/O
- Renally dose all ABx/Cr
- Continue maintenance IVF � currently on NS 0.9% at 100cc/hr
- Trend H&H and transfuse to keep Hb >7g/dL; plt>20k
- Start PPI for stress ulcer prophylaxis
- DVT ppx: LMWH
Code status: DNR/DNI
Continue ICU level care for this critically ill patient.
Critical care statement: A total of 41 minutes of critical care time was provided for this patient today. This includes management of unstable vital signs, evaluation of the patient at bedside, reviewing the patient's pertinent medical records
including radiographs, microbiology, laboratory evaluations, and� discussion with primary team, consultants, pharmacy, nutrition, physical therapy, case management, charge nurse, critical care nursing, and respiratory therapy.
Data:
CXR 10/05/2024: Some predominantly thickened linear right basilar opacification most likely representing subsegmental atelectasis and/or scarring.
Patchy left basilar opacification which at least in part could represent pneumonia
Subjective Dataa
Subjective Data
Date of Service:
Date of Service: October 06, 2024
Chief Complaint: Construction Electrician Follow Up
Subjective:
Patient seen and evaluated this morning. Febrile overnight with Tmax 101.1 �F. Tachypneic this AM. On levophed this AM at 12mcg/min with blood pressure 91/45, and heart rate 84. On 10 L/min O2 via face mask (60% FiO2) and he is saturating 95%.
Remains unresponsive.
Review of Systems
General: Unobtainable - Pat Unresp
Objective Data
Data Reviewed
Vital Signs / I&O / Oxygen:
Vital Signs
Temp Pulse Resp BP Pulse Ox
99.9 F 90 12 97/57 94
10/06/24 02:12 10/06/24 08:30 10/06/24 08:30 10/06/24 08:30 10/06/24 08:38
Intake and Output
10/05/24 10/06/24 10/07/24
06:59 06:59 06:59
Intake Total 1840.0 / 1985.0 290 / 290
Output Total 830 / 880 100 / 100
Balance 1010.0 / 1105.0 190 / 190
SaO2 94
Nasal Cannula flow liters per 5
minute
Physical Exam
General: Respiratory Distress (mild), Chills (negative) and Sweats (negative)
HEENT: Normocephalic and Anicteric
Cardiovascular: S1-S2 and Peripheral Edema (negative)
Respiratory: Wheeze (negative), Crackles (negative), Rhonchi ([place] upon expiration bilaterally), Accessory Resp Muscle Use (mild) and Stridor (negative)
GI: Soft, Non Distended, Non Tender and Normal Bowel Sounds
Neurology: Tremors (Occasionally seen with muscle twitches predominantly in the upper extremities) and Unresponsive
Skin: Warm, Dry, Cyanosis (negative) and Jaundice (negative)
Labs/Micro/Reports
Lab Data
10/06/24 03:34
10/06/24 03:34
Laboratory Results
10/05/24 10/05/24
12:56 16:57
PT 16.1 H
INR 1.26
APTT 35.8 H
pH 7.37
pCO2 47
pO2 110 H
HCO3 27.2
O2 Delivery Level
Microbiology
10/05/24 14:05 Nose Nasal Screen MRSA (PCR) - Final
MRSA not detected - performed by PCR methodology.
10/05/24 09:23 Nasal Swab Influenza Types A & B (ALEXEY) - Final
Influenza A Positive, NAAT
[2024-10-06] MEDS: TIMOPTIC 0.5% OPHTHALMIC SOLUTION 1 DROP OPHTH ×2 (08:19→20:09)
[2024-10-06] MEDS: ALPHAGAN 0.2% EYE DROPS 1 DROP RIGHT EYE ×2 (08:19→20:09)
[2024-10-06 08:39] LABS: Mean Platelet Volume 10.4 fL (7.4-10.4); Platelet Count 72 10^3/uL (130-400)
--- NOTE | 2024-10-06 08:39 | PTCARENOTE ---
pt opens eyes to stimuli- pupils 2 and sluggish. nonverbal. pt mother/caregiver at bedside. reviewed pt condition and plan of care. mother concerned about pt seizure medication. expressed to hospitalist by mother. neuro consult ordered. pt on
venti mask increased to 60% o2 sat now 94%. breath sounds very course loud rhonchi. sanchez in place draining yellow. ivf and levo gtt running as ordered.
[2024-10-06] MEDS: DULCOLAX 10 MG RECTAL (08:55)
--- NOTE | 2024-10-06 09:05 | W.PN.HOSP.TC ---
Today's Communication/Plan
-
as per neuro communication - start Phenobarb
cont Abx
leighton off O2 and pressors
Assessment / Plan
Assessment / Plan
48yo M with Down syndrome, progressive dysphasia on palliative care developed fevers and poor oral intake day prior to admission. FOund Influenza A and LLL pneumonia on XR. ALso WOODROW most likely 2/2 dehydration. Developed septic shock
A/P
#Acute hypoxic respiratory failure 2/2 pneumonia, unspecified organism
#Influenza A
#PATRICIA not on CPAP or nocturnal O2
#Acute septic encephalopathy 2/2 above
#Septic shock
start non-invasive O2, titrate to >90%
Tamiflue
respiratory hygiene - frequent suctioning
VAnco/Cefepime since procal high
sputum Cx
tylenol
droplet precautions
Bcx NTD
Wean off pressors while cont IVF
#thrombocytopenia
#Leukopenia
4T score low
most likely 2/2 acute disease
monitor plt
#Hypokalcemia
replete and follow
#Transaminitis
mild, stable
reactive 2/2 viral disease
follow LFT
#WOODROW - improving
#Dysphagia
PARTS COUNTER REPRESENTATIVE
IVF
follow Cr
Lewis
#Down syndrome
#LBD
#Parkinson
progressive
family will continue with palliative approach
#Seizure d/o
with lethargy cannot take Lamotrigine. Discussed with neurologist - switched to IV Phenobarb until mental status improves
Seizure precautions
#Glaucoma
cont home meds
#Osteoporosis
cont Prolia upon d/c
DVT ppx hep
DNR/DNI
I have spent at least 58min reviewing chart, test results, communication with consultants and direct patient care
Anticipated Discharge: > 48 hours
Subjective/Interval History
-
Date of Service: October 06, 2024
Objective Data
-
Labs:
Laboratory Results
10/06/24
03:34
WBC 4.2 L
Hgb 13.2
Hct 39.8
Plt Count 72 L D
Sodium 144
Potassium 3.8
Chloride 112 H
Carbon Dioxide 25
BUN 35 H
Creatinine 1.2
Glucose 97
Calcium 6.5 L* D
Total Bilirubin 0.4
AST 70 H
ALT 76 H
Alkaline Phosphatase 71
Vital Signs:
Vital Signs
Temp Pulse Resp BP Pulse Ox
99.9 F 90 12 97/57 94
10/06/24 02:12 10/06/24 08:30 10/06/24 08:30 10/06/24 08:30 10/06/24 08:38
I&O
10/05/24 10/06/24 10/07/24
06:59 06:59 06:59
Intake Total 1840.0 / 1985.0 290 / 290
Output Total 830 / 880 100 / 100
Balance 1010.0 / 1105.0 190 / 190
Review of Systems
-
Unable to obtain full review of systems at this time due to: Acuity
Physical Exam
-
General: No Apparent Distress
HEENT: Moist Mucous Membranes
Respiratory: Crackles (gross, central b/l)
Cardiac: Regular Rhythm
GI: Soft, Nontender and Nondistended
Musculoskeletal: No Clubbing, No Cyanosis and No Edema
Neuro: Other (lethargic, poorly arousable to stimuli)
Psych: Calm
--- NOTE | 2024-10-06 09:14 | PTCARENOTE ---
chg bath done sanchez care done. pt mother expressed concern for pt constipation explained home regiment included enemas q3 days and disempaction as needed. dulcolax supp given as ordered. posterior chest pt done during bath to encourage cough. pt
made minimal stiffening arm and leg movements during turning.
[2024-10-06] MEDS: PHENOBARBITAL 32.5 MG IV (09:27)
[2024-10-06] MEDS: STERILE WATER FOR INJECTION IV (12:37)
[2024-10-06] MEDS: PROTONIX IV 40 MG IV (12:42)
[2024-10-06] MEDS: NSS (PRESERVATIVE FREE) 10 ML IV (12:42)
--- NOTE | 2024-10-06 13:02 | CM ---
CM following re: discharge planing.
Reviewed pt's chart, met with pt. pt's mother and pt's brother at bedside.
Pt is a 48 year old male, admitted with primary dx of Septic shock secondary to influenza with superimposed pneumonia.
Per mother, pt lives with parents 2SH with w/c accessible entrance. Pt is w/c bound, requires total care and parents and pt's siblings provide all necessary care to pt at home. Per mother pt has supportive brother and a sister who is RN. Pt's
mother made it very clear she does not want any additional services for her son at home. Per mother they applied for community based services and family went through many complicated and unpleasant challenges and that's why parents and pt's
siblings will continue caring for pt at home. Per mother, pt cannot transfer himself from a bed to a chair and family helps. Per mother, they do have a w/c accessible van. Pt's mother made it very clear that pt will return back home when medically
stable with family support.
PCP: Oscar Burris
Pharmacy: [facility].
D/C plan: home with family support. Family to transport at discharge.
CM will follow with discharge plan updates as hospitalization progresses
[2024-10-06 13:10] LABS: Venous Blood Gas B.E. -2.4 mmol/L (-4 to +4); Venous Blood Gas HCO3 24.6 mmol/L (22-27); Venous Blood Gas O2 Sat % 99.4 %; Venous Blood Gas pCO2 50 mmHg (35-48); Venous Blood Gas pO2 129 mmHg (30-50)
[2024-10-06] MEDS: ATIVAN IV (15:51)
[2024-10-06] MEDS: LOVENOX 40 MG SC (17:37)
[2024-10-06] MEDS: XALATAN OPHTHALMIC SOLUTION 1 DROP BOTH EYES (20:09)
[2024-10-06] MEDS: ATIVAN 0.25 MG IV (21:17)
--- NOTE | 2024-10-06 21:20 | PTCARENOTE ---
poc discussed with mom- pt with rhonchi- 50% 10 liters. nonverbal, hypo bs- levo tapered to ten . Tylenol given fro fever- sanchez with clear yellow
--- NOTE | 2024-10-06 21:23 | PTCARENOTE ---
ongoing mouth care difficult pt with easy bleeding and missing teeth however with old skin on roof of mouth - gently brushed and removed old brown skin which was painful to pt
[2024-10-06 22:23] LABS: Blood Urea Nitrogen 18 mg/dl (9-20); Calcium 6.1 mg/dl (8.4-10.2); Carbon Dioxide 24 mmol/L (22-30); Chloride 109 mmol/L (98-107); Estimated Creatinine Clearance 92 ml/min; Glucose 114 mg/dl (70-99); Sodium 139 mmol/L (135-145); eGFR > 60.00
[2024-10-06 22:43] LABS: Potassium 3.5 mmol/L (3.5-5.1)
[2024-10-06] MEDS: LR 1000 IV (23:10)
[2024-10-06] MEDS: CALCIUM GLUCONATE 290 MG IV (23:11)
--- NOTE | 2024-10-06 23:13 | PTCARENOTE ---
tylenol given for fever- repeat bmp with low ca- order to replace see mar- fluids changed to LR- Levo at 8 being tapered
[2024-10-07] VITALS (15 sets, daily range): BP systolic 88–140; BP diastolic 53–80; PULSE 2–90
--- NOTE | 2024-10-07 00:12 | PTCARENOTE ---
afebrile no distress. 85-90% on mask- mother dtates he drops to mid 80's when he sleeps and this is normal- oxygen requirements currently 50% 10 liters with mask
[2024-10-07 04:14] LABS: Hematocrit 48.9 % (39.0-52.0); Mean Corp Hgb Conc. 32.7 g/dL (33.0-37.0); Mean Corpuscular Hgb 33.8 pg (27.0-31.0); Mean Corpuscular Volume 103.4 fL (80.0-94.0); Mean Platelet Volume 10.7 fL (7.4-10.4); Platelet Count 52 10^3/uL (130-400); Red Blood Cell Count 4.73 10^6/uL (4.70-6.10); Red Cell Dist. Width 13.6 % (11.5-14.5); White Blood Cell Count 8.9 10^3/uL (4.8-10.8)
[2024-10-07 04:21] LABS: B.E. -6.6 mmol/L; O2 Saturation % 97.9 % (94-98); PCO2 69 mmHg (35-48); PO2 89 mmHg (83-108)
[2024-10-07 04:35] LABS: O2 Therapy 60%; pH 7.15 (7.35-7.45)
[2024-10-07 04:39] LABS: ALT (SGPT) 73 U/L (0-50); AST (SGOT) 111 U/L (17-59); Albumin 2.7 g/dl (3.5-5.0); Alkaline Phosphatase 87 U/L (38-126); Blood Urea Nitrogen 15 mg/dl (9-20); Calcium 7.2 mg/dl (8.4-10.2); Carbon Dioxide 26 mmol/L (22-30); Chloride 109 mmol/L (98-107); Estimated Creatinine Clearance 82 ml/min; Glucose 107 mg/dl (70-99); Magnesium 1.9 mg/dl (1.6-2.3); Phosphorus 3.6 mg/dl (2.5-4.5); Potassium 4.3 mmol/L (3.5-5.1); Sodium 141 mmol/L (135-145); Total Bilirubin 0.3 mg/dl (0.2-1.3); Total Protein 5.9 g/dl (6.3-8.2); eGFR > 60.00
--- NOTE | 2024-10-07 04:43 | PTCARENOTE ---
levo gtt off - abg with critical 7.15 ph . shop cooper ordered bipap
--- NOTE | 2024-10-07 04:51 | PTCARENOTE ---
pt's mother unsure about placing her son on bipap- she is getting in contact with her - she understands progression of the situation if she does not agree to bipap
--- NOTE | 2024-10-07 05:14 | PTCARENOTE ---
bipap placed after family agreed- they were very specific that they do no want intubation
[2024-10-07] MEDS: STERILE WATER FOR INJECTION 10 ML IV ×2 (05:32→07:48)
[2024-10-07] MEDS: MAXIPIME 1000 MG IV (05:32)
[2024-10-07] MEDS: ATIVAN IV (07:37)
[2024-10-07] MEDS: PHENOBARBITAL 32.5 MG IV (07:47)
[2024-10-07] MEDS: MAXIPIME 2000 MG IV (07:48)
[2024-10-07] MEDS: NSS (PRESERVATIVE FREE) 10 ML IV (07:48)
[2024-10-07] MEDS: PROTONIX IV 40 MG IV (07:48)
[2024-10-07] MEDS: CALCIUM GLUCONATE 10% INJECTION 121.505 MEQ IV (07:48)
[2024-10-07] MEDS: ALPHAGAN 0.2% EYE DROPS 1 DROP RIGHT EYE (07:49)
[2024-10-07] MEDS: TIMOPTIC 0.5% OPHTHALMIC SOLUTION 1 DROP OPHTH (07:49)
[2024-10-07] MEDS: DUONEB INH (08:18)
[2024-10-07 08:19] LABS: Absolute Neutrophils -Man Diff 7.5 10^3/uL (1.4-6.5); Band Neutrophils 30 % (0-3); Lymphocytes 8 % (20-51); Metamyelocytes 2 % (-); Monocytes 5 % (2-9); Segmented Neutrophils 55 % (42-75)
[2024-10-07 08:20] LABS: Normal RBC Morphology Yes; Platelets Checked Yes; Total Cells Counted 100
--- NOTE | 2024-10-07 08:20 | W.PN.INTV ---
Today's Communication / Plan
Recommendations
Patient had worsening respiratory distress overnight
Imaging shows worsening pneumonia and atelectasis
Family is transitioning the patient to comfort care
Emotional support provided
Box Puller/pulmonary service will now sign off. Please call back with any questions or concerns.
Assessment
-
48-year-old male with a past medical history of Down syndrome, Parkinson disease with suspected Lewy body dementia, congenital dysplasia right hip, malignant glaucoma of right eye, celiac disease, GERD, history of depression, seizure disorder and
history of COVID-19 who presented with coughing, reduced appetite and fever. Found to be flu a positive and hypotensive requiring vasopressors. Suspected bacterial superinfection. Patient admitted to the ICU for further care and performance reporter
services consulted for additional management/recommendations.
Assessment:
#Septic shock due to pneumonia with influenza A with bacterial superinfection
#Acute respiratory failure with hypoxia
#Influenza A virus
#CAP involving RLL, suspected to be due to aspiration
#WOODROW - resolved
#Hypernatremia (mild) - resolved
#Transaminitis
Plan:
- Patient had worsening respiratory distress overnight and CTA chest showed worsening bilateral lower lobe pneumonia + atelectasis
- Family contacted and they transitioned the patient to comfort care
- Stop all medications unless tailored for comfort
- Emotional support was provided to the family
- Backshoe Person offered
- Stop blood draws and fingersticks
Code status: DNR/DNI
No additional recommendations at this time. Box Puller/pulmonary service will now sign off. Please call back with any questions or concerns.
Data:
CXR 10/05/2024: Some predominantly thickened linear right basilar opacification most likely representing subsegmental atelectasis and/or scarring.
Patchy left basilar opacification which at least in part could represent pneumonia
Total time spent today was 42 minutes for this encounter. Time includes reviewing laboratory test/imaging results, reviewing pertinent medical records, obtaining and reviewing medical history, performing an appropriate exam, ordering medications,
tests and procedures. Time also includes documentation of this encounter, coordinating patient care and communicating with other healthcare professionals. Total time does not include separately billed tests performed on this date of service.
Subjective Dataa
Subjective Data
Date of Service:
Date of Service: October 07, 2024
Chief Complaint: Box Puller Follow Up and Pulmonary Follow Up
Subjective:
Patient seen this morning. He was having apneic episodes overnight with significant labored breathing. Worsening pneumonia seen on imaging overnight. Family wished to transition to comfort care.
Review of Systems
General: Unobtainable - Pat Unresp
Objective Data
Data Reviewed
Vital Signs / I&O / Oxygen:
Vital Signs
Temp Pulse Resp BP Pulse Ox
100.6 F H 96 12 101/65 59
10/07/24 07:50 10/07/24 06:00 10/07/24 06:00 10/07/24 06:00 10/07/24 08:00
Intake and Output
10/06/24 10/07/24 10/08/24
06:59 06:59 06:59
Intake Total 1840.0 / 1985.0 3092.5 / 3142.5 150 / 150
Output Total 830 / 880 2350 / 2475 250 / 250
Balance 1010.0 / 1105.0 742.5 / 667.5 -100 / -100
SaO2 59
Nasal Cannula flow liters per 5
minute
Physical Exam
General: Respiratory Distress (present), Chills (negative) and Sweats (negative)
HEENT: Normocephalic and Anicteric
Cardiovascular: S1-S2 and Peripheral Edema (negative)
Respiratory: Wheeze (negative), Crackles (negative), Rhonchi ([place] upon expiration bilaterally), Accessory Resp Muscle Use (mild-moderate) and Stridor (negative)
GI: Soft, Non Distended, Non Tender and Normal Bowel Sounds
Neurology: Tremors (Occasionally seen with muscle twitches predominantly in the upper extremities) and Unresponsive
Skin: Warm, Dry, Cyanosis (negative) and Jaundice (negative)
Labs/Micro/Reports
Lab Data
10/07/24 03:39
10/07/24 03:39
Laboratory Results
10/06/24 10/07/24
11:42 04:08
pH Cancelled 7.15 L*
pCO2 Cancelled 69 H
pO2 Cancelled 89
HCO3 Cancelled 24.0
O2 Delivery Level Cancelled 60%
Microbiology
10/06/24 10:03 Sputum Respiratory Culture - Final
10/06/24 10:03 Sputum Gram Stain - Final
10/05/24 13:49 Blood/Venous Blood Culture - Preliminary
No Growth in 24 hours- Final report to follow
10/05/24 13:49 Blood/Venous Blood Culture - Preliminary
No Growth in 24 hours- Final report to follow
10/05/24 16:52 Urine Urine Culture - Final
NO GROWTH
10/05/24 11:58 Blood/Venous Blood Culture - Preliminary
No Growth in 24 hours- Final report to follow
10/05/24 11:58 Blood/Venous Blood Culture - Preliminary
No Growth in 24 hours- Final report to follow
10/06/24 10:03 Sputum Respiratory Culture - Final
10/06/24 10:03 Sputum Gram Stain - Final
10/05/24 14:05 Nose Nasal Screen MRSA (PCR) - Final
MRSA not detected - performed by PCR methodology.
10/05/24 09:23 Nasal Swab Influenza Types A & B (ALEXEY) - Final
Influenza A Positive, NAAT
--- NOTE | 2024-10-07 08:20 | PTCARENOTE ---
pt having periods of apnea on bipap o2 sat drop into the 40's. placed on 100% nrb. deep suctioned for thick moreno. family at bedside. mother agreed to bag pt to regain o2 level. bag and suction successful for brief period of time. within 5 min pt
again agonal breathing. resp therapist and i explained to family pt condition and mother and family agreed to not continue with treatment and keep him comfortable. dr Vieira notified of change and family wishes.
--- NOTE | 2024-10-07 08:34 | W.PN.UPDATE ---
Update Note
Progress Note Update
Called by RN due to apneic episodes, family bedside, patient with significant labored breathing, family confirmed that they wish comfort care. Orders placed
[2024-10-07] MEDS: MORPHINE SULFATE 2 MG IV (08:42)
--- NOTE | 2024-10-07 08:47 | W.PN.HOSP.TC ---
Today's Communication/Plan
-
comfort care
Assessment / Plan
Assessment / Plan
48yo M with Down syndrome, progressive dysphasia on palliative care developed fevers and poor oral intake day prior to admission. FOund Influenza A and LLL pneumonia on XR. ALso WOODROW most likely 2/2 dehydration. Developed septic shock, worsening b/l
pneumonia on CT, respiratory distress, worsening hypoxia. Family requsted comfort measures. they understand that active medical mgmt will be stopped including Abx and agreeable with the plan.
A/P
#Acute hypoxic respiratory failure 2/2 pneumonia, unspecified organism
#Influenza A
#PATRICIA not on CPAP or nocturnal O2
#Acute septic encephalopathy 2/2 above
#Septic shock
#thrombocytopenia
#Leukopenia
#Hypocalcemia
#Transaminitis
#WOODROW - improving
#Dysphagia
#Down syndrome
#LBD
#Parkinson
#Seizure d/o
#Glaucoma
#Osteoporosis
COmfort maria dolores: stop Abx, O2 for comfort, Morphin, Ativan, glycopyrrolate
I have spent at least 58min reviewing chart, test results, communication with consultants and direct patient care
Anticipated Discharge: Within 24 hours
Subjective/Interval History
-
Date of Service: October 07, 2024
Objective Data
-
Labs:
Laboratory Results
10/06/24 10/07/24 10/07/24
21:56 03:39 04:08
WBC 8.9
Hgb 16.0 D
Hct 48.9
Plt Count 52 L D
HCO3 24.0
Sodium 139 141
Potassium 3.5 4.3
Chloride 109 H 109 H
Carbon Dioxide 24 26
BUN 18 15
Creatinine 0.8 0.9
Glucose 114 H 107 H
Calcium 6.1 L* 7.2 L
Total Bilirubin 0.3
AST 111 H
ALT 73 H
Alkaline Phosphatase 87
10/07/24
07:15
WBC
Hgb
Hct
Plt Count
HCO3 Pending
Sodium
Potassium
Chloride
Carbon Dioxide
BUN
Creatinine
Glucose
Calcium
Total Bilirubin
AST
ALT
Alkaline Phosphatase
Vital Signs:
Vital Signs
Temp Pulse Resp BP Pulse Ox
100.6 F H 96 12 101/65 95
10/07/24 07:50 10/07/24 06:00 10/07/24 06:00 10/07/24 06:00 10/07/24 06:00
I&O
10/06/24 10/07/24 10/08/24
06:59 06:59 06:59
Intake Total 1840.0 / 1985.0 3092.5 / 3142.5 100 / 100
Output Total 830 / 880 2350 / 2475 250 / 250
Balance 1010.0 / 1105.0 742.5 / 667.5 -150 / -150
Review of Systems
-
Unable to obtain full review of systems at this time due to: Acuity
Physical Exam
-
HEENT: Moist Mucous Membranes
Respiratory: Rhonchi and Crackles
Neuro: Awake
Psych: Calm
--- NOTE | 2024-10-07 08:58 | PTCARENOTE ---
dr. Vieira in to see pt and speak with family. pt now comfort. medical appliance maker in to see pt. morphine given for resp symptoms as ordered.
--- NOTE | 2024-10-07 09:00 | CHAP ---
Emotional and spiritual support provided, prayer blanket given, scientific specialist called. Fr. Aguirre of [place] in [place] provided Sacrament of the Sick/Last Rites. Will follow through the day.
[2024-10-07] MEDS: ROBINUL 0.2 MG IV (09:08)
--- NOTE | 2024-10-07 11:04 | W.PN.DEATH ---
Pronouncement of
-
Called to see patient to pronounce.
No spontaneous heart tones or respirations noted.
Patient not responsive to verbal stimuli.
Patient is pronounced .
Time of : 09:14
Date of : 10/07/24
Cause of : Pneumonia
Family Notified: Yes
--- NOTE | 2024-10-07 11:06 | W.DCSUMMARY ---
Discharge Summary
Discharge Data
Date of Admission: 10/05/24
Date of Discharge: 10/07/24
-
Pending Results: No
Hospital Course
48yo M with Down syndrome, progressive dysphasia on palliative care developed fevers and poor oral intake day prior to admission. FOund Influenza A and LLL pneumonia on XR. ALso WOODROW most likely 2/2 dehydration. Developed septic shock, worsening b/l
pneumonia on CT, respiratory distress, worsening hypoxia. Family requsted comfort measures. they understand that active medical mgmt will be stopped including Abx and agreeable with the plan. Patient with his family bedside at 9:14am on
10/07/24
I have spent at least 58min reviewing chart, test results, communication with consultants and direct patient care
Patient was managed for
#Acute hypoxic respiratory failure 2/2 pneumonia, unspecified organism
#Influenza A
#PATRICIA not on CPAP or nocturnal O2
#Acute septic encephalopathy 2/2 above
#Septic shock
#thrombocytopenia
#Leukopenia
#Hypocalcemia
#Transaminitis
#WOODROW - improving
#Dysphagia
#Down syndrome
#LBD
#Parkinson
#Seizure d/o
#Glaucoma
#Osteoporosis
Discharge Plan
-
Referrals:
Oscar Burris MD [Family Provider] -
Prescriptions:
No Action
travoprost [Travatan Z] 0.004 % Drops
1 drp BOTH EYES HS
melatonin 3 mg Tablet
6 mg PO HS
alprazolam [Xanax] 0.25 mg Tablet
0.125 mg PO TID
brimonidine-timolol [Combigan] 0.2-0.5 % Drops
1 drp RIGHT EYE BID
Rhopressa 0.02 % Drops
1 drp RIGHT EYE HS
sennosides-docusate sodium [Senokot-S] 8.6-50 mg Tablet
2 tab-cap PO HS
cyanocobalamin (vitamin B-12) [Vitamin B-12] 1,000 mcg Tablet
1,000 mcg PO DAILY
calcium citrate 200 mg (950 mg) Tablet
500 mg PO DAILY
cholecalciferol (vitamin D3) [Vitamin D3] 25 mcg (1,000 unit) Tablet
25 mcg PO DAILY
latanoprost 0.005 % Drops
1 drp BOTH EYES HS
lamotrigine [Lamictal] 25 mg Tablet
50 mg PO BID
azithromycin 200 mg/5 mL Suspension For Reconstitution
0 mg PO .COMPLEX
Rx Instructions:
take 12.5 mL (500 mg) by mouth today (day 1), then 6.25 mL (250 mg) daily for 4 days (days 2-5)
sodium chloride 0.9 % Solution For Nebulization
0 ml INHALATION QIDPRN PRN (Reason: sob)
acetaminophen 650 mg/20.3 mL Solution
0 mg PO Q4HPRN PRN (Reason: fever)
Prolia 60 mg/mL Syringe
60 mg SC [id number]
Discharge Date and Time
Print Language: KITTITIAN
--- NOTE | 2024-10-07 11:07 | PTCARENOTE ---
pt 913 with family at bedside. helped family with home questions. hosp notified [facility] notified post mortem care done.
[2024-10-07 14:44] LABS: Lamotrigine (Lamictal) 3.9 ug/mL (3.0-15.0)
== END 2024-10-07 12:36 | disposition expired | DRG 871 ==
LOC: ICU 13:02
PROVIDERS: Nurse Practitioner Primary Care; Registered Nurse; ADMITTING PHYSICIAN Internal Medicine; CONSULT PHYSICIAN Internal Medicine Critical Care Medicine; EMERGENCY PHYSICIAN Emergency Medicine; FAMILY PHYSICIAN Family Medicine
PROC: 5A09357 Assistance with Respiratory Ventilation, Less than 24 Consecutive Hours, Continuous Positive Airway Pressure (ICD-10-PCS; 2024-10-07)
DX: A41.89 Other specified sepsis (principal); G93.41 Metabolic encephalopathy; R65.21 Severe sepsis with septic shock; J10.00 Influenza due to other identified influenza virus with unspecified type of pneumonia; J96.01 Acute respiratory failure with hypoxia; J69.0 Pneumonitis due to inhalation of food and vomit; F02.83 Dementia in other diseases classified elsewhere, unspecified severity, with mood disturbance; N17.9 Acute kidney failure, unspecified; E87.0 Hyperosmolality and hypernatremia; J98.11 Atelectasis; Q90.9 Down syndrome, unspecified; Z51.5 Encounter for palliative care; F32.A Depression, unspecified; G20.A1 Parkinson's disease without dyskinesia, without mention of fluctuations; G31.83 Neurocognitive disorder with Lewy bodies; K59.09 Other constipation; G40.909 Epilepsy, unspecified, not intractable, without status epilepticus; G47.33 Obstructive sleep apnea (adult) (pediatric); R13.10 Dysphagia, unspecified; R47.02 Dysphasia; R74.01 Elevation of levels of liver transaminase levels; H40.9 Unspecified glaucoma; D69.6 Thrombocytopenia, unspecified; D72.819 Decreased white blood cell count, unspecified; E83.51 Hypocalcemia; M81.0 Age-related osteoporosis without current pathological fracture; E86.0 Dehydration; Z66 Do not resuscitate; Z11.52 Encounter for screening for COVID-19
CPT/HCPCS: 36600; 51702; 71045; 71275; 80048; 80053; 80175; 80202; 81003; 81015; 82570; 82805; 83605; 83735; 83935; 84100; 84145; 84300; 85025; 85610; 85730; 87040; 87086; 87205; 87502; 87641; 87811; 94640; 94660; 96361; 96365; 99285; Q9967